=== PATIENT | male | born 1945 | race Caucasian/White ===

== ENCOUNTER 2018-04-02 10:00 | Day surgery (SDC) | payer MEDICARE, BC, SELFPAY ==
[2018-04-02 10:33] VITALS: BP 132/69; PULSE 56; RESP 18; TEMP 36; O2SAT 100
[2018-04-02] MEDS: SODIUM CHLORIDE 0.9% 1,000 ML 200 ML IV (10:39)
--- NOTE | 2018-04-02 10:45 | PM.HP.1 ---
History of Present Illness Date Patient Seen: 04/02/18 Time Patient Seen: 10:45 Chief complaint: colonoscopy [id number] Narrative: 72-year-old male with personal history of colon polyps. Last endoscopy was 2013 at which time no polyps were found. His original polyp was diagnosed in 2009. He has had no recent gastrointestinal symptoms or complaints. Denies any nausea, vomiting, unintended weight loss, abdominal pain, change in bowel habits, diarrhea, constipation, melena, hematochezia, or bright red blood per rectum. Patient History Medical History Histoplasmosis (Acute) History of fracture of clavicle (Acute) Insomnia (Acute) Medial meniscus tear (Acute) Osteoarthritis (Acute) Personal history of colonic polyps (Acute) Prostate cancer (Acute) Urinary frequency (Acute) Surgical History History of colonoscopy (Acute) History of repair of anterior cruciate ligament (Acute) Family & Social History Family History: Reviewed 04/02/18 by Anibal Underwood MD Social History: household members significant other Nonsmoker Occasional alcoholic beverage Review of Systems Review of Systems All systems reviewed & are unremarkable except as noted in HPI and below Exam Vital Signs (past 8 hours): - 04/02/18 10:33 Temperature 96.8 F L Pulse Rate 56 L Respiratory Rate 18 Blood Pressure 132/69 H Pulse Oximetry 100 Oxygen Delivery Method Room Air Narrative Exam Narrative: Thin male in no acute distress lying comfortably in the gurney. Alert oriented x3 Sclera nonicteric Regular rate rhythm Abdomen soft and nondistended. Scaphoid. Extremities no clubbing, cyanosis, or edema Objective Labs Labs: No recent laboratory radiographic studies review Patient to begin radiation therapy for prostate cancer next month Assessment & Plan Plan: Assessment/Plan Narrative: 72-year-old male with personal history of colon polyps. It has been 5 years since his last endoscopy. He requires surveillance currently. Colonoscopy is once again recommended. Technical details of the procedure were discussed. Risks, benefits, alternatives were explained. Risks including but not limited to sedation, aspiration, bleeding, pain, missed lesion, incomplete examination, need for further radiographic studies, colonic perforation, need for major abdominal surgery, and all attendant risks of major surgery were discussed in detail. All questions were answered to his satisfaction, and he voiced understanding. Consent was placed on the chart. We will proceed as above.
--- NOTE | 2018-04-02 10:49 | SUR.PREOP ---
Pt left for Endo Suite at approximately 1047. Update given to Endo RN's
--- NOTE | 2018-04-02 10:50 | P.HP_ITS ---
History of Present Illness Date Patient Seen: 04/02/18 Time Patient Seen: 10:45 Chief complaint: colonoscopy [id number] Narrative: 72-year-old male with personal history of colon polyps. Last endoscopy was 2013 at which time no polyps were found. His original polyp was diagnosed in 2009. He has had no recent gastrointestinal symptoms or complaints. Denies any nausea, vomiting, unintended weight loss, abdominal pain , change in bowel habits, diarrhea, constipation, melena, hematochezia, or bright red blood per rectum. Patient History Medical History Histoplasmosis (Acute) History of fracture of clavicle (Acute) Insomnia (Acute) Medial meniscus tear (Acute) Osteoarthritis (Acute) Personal history of colonic polyps (Acute) Prostate cancer (Acute) Urinary frequency (Acute) Surgical History History of colonoscopy (Acute) History of repair of anterior cruciate ligament (Acute) Family & Social History Family History: Reviewed 04/02/18 by Anibal Underwood MD Social History: household members significant other Nonsmoker Occasional alcoholic beverage Review of Systems Review of Systems All systems reviewed & are unremarkable except as noted in HPI and below Exam Vital Signs (past 8 hours): - 04/02/18 10:33 Temperature 96.8 F L Pulse Rate 56 L Respiratory Rate 18 Blood Pressure 132/69 H Pulse Oximetry 100 Oxygen Delivery Method Room Air Narrative Exam Narrative: Thin male in no acute distress lying comfortably in the gurney. Alert oriented x3 Sclera nonicteric Regular rate rhythm Abdomen soft and nondistended. Scaphoid. Extremities no clubbing, cyanosis, or edema Objective Labs Labs: No recent laboratory radiographic studies review Patient to begin radiation therapy for prostate cancer next month Assessment & Plan Plan: Assessment/Plan Narrative: 72-year-old male with personal history of colon polyps. It has been 5 years since his last endoscopy. He requires surveillance currently. Colonoscopy is once again recommended. Technical details of the procedure were discussed. Risks, benefits, alternatives were explained. Risks including but not limited to sedation, aspiration, bleeding, pain, missed lesion, incomplete examination, need for further radiographic studies, colonic perforation, need for major abdominal surgery, and all attendant risks of major surgery were discussed in detail. All questions were answered to his satisfaction, and he voiced understanding. Consent was placed on the chart. We will proceed as above.
--- NOTE | 2018-04-02 10:50 | PM.PREOP ---
Pre-operative Note Interval Note Pre-op Check: Yes History & Physical Reviewed by Physician, Yes Exam Performed and Yes History & Physical exam performed today by Physician Changes: No H&P completed within 30 days and has changed as indicated here:: Patient seen and examined today. History and physical examination documented and placed on the chart today. We will proceed with colonoscopy today as planned. ASA Class (for procedural sedation): II
[2018-04-02] MEDS: MIDAZOLAM 5 MG/5 ML VIAL IV (10:56)
[2018-04-02] MEDS: fentaNYL 250 MCG/5 ML INJ IV (10:56)
--- NOTE | 2018-04-02 11:21 | PM.OP.ENDO ---
Operative Date/Time/Diagnoses Date of procedure: 04/02/18 Time of procedure: 11:21 Pre-op diagnosis: Personal history of colon polyps Post-op diagnosis: other (Diverticulosis but otherwise normal colon and rectum) Procedure & Clinicians Study performed: 1. Sedation per surgeon 2. Colonoscopy Same procedure as scheduled: Yes Indications: 72-year-old male with personal history of colon polyps diagnosed approximately 2009. His last colonoscopy was 2013 which was unremarkable. He presents now for colorectal surveillance. Colonoscopy is once again recommended. Surgeon: Anibal Underwood Procedure Notes SCOAP/Timeout: Yes Procedure in detail: After obtaining informed consent, the patient was brought to the GI suite and placed in the left lateral decubitus position on the examination table. After placement of appropriate monitors, the patient was given incremental doses of Versed and Fentanyl until an appropriate level of sedation was achieved. A time out was held per SCOAP protocol. A digital rectal examination was performed and did not reveal any masses or obstructing lesions. The colonoscope was gently passed into the patient's anus and the entire colon navigated to the level of the cecum with minimal difficulty. Once in the cecum, the scope was withdrawn being sure to go before and beyond all mucosal folds and prominences and get an excellent examination. The findings are noted above. At the level of the rectal vault, the scope was retroflexed and the internal anal canal was examined. The scope was straightened and air aspirated from the colon. The instrument was removed from the patient's body and the procedure was concluded. The patient was allowed to awaken from sedation without difficulty and taken to the post-anesthesia care unit in good condition. Scope withdrawal time: 10:14 min Sedation minutes: 29 Findings: diverticulosis and other findings (Normal colon and rectum) Specimen(s): none sent Complications: none Recommendations: High fiber diet and Other recommendation (No further colonoscopy in the absence of any new symptoms or problems) Plan for aftercare: 1. Discharged home 2. He has now had 2 consecutive normal endoscopy since removal of his initial colon polyp. Therefore would not recommend further colonoscopy at his age in the absence of any new symptoms or problems. Follow up: as needed Disposition: PACU
[2018-04-02 11:30] VITALS: BP 107/63; PULSE 65; RESP 15; TEMP 36.6; O2SAT 100
[2018-04-02 11:50] VITALS: BP 125/62; PULSE 58; RESP 16; TEMP 36.1; O2SAT 100
--- NOTE | 2018-04-02 12:02 | SUR.PHASEII ---
Discharge instructions have been reviewed with both Pt and Justine and all questions have been answered. Pt is stable on feet and has met discharge criteria.
== END 2018-04-02 11:54 ==
LOC: ENDO 10:02
PROVIDERS: Family Provider Family Medicine Geriatric Medicine; PCP Family Medicine Geriatric Medicine; Visit Provider Surgery
PROC: 0DJD8ZZ Inspection of Lower Intestinal Tract, Via Natural or Artificial Opening Endoscopic (ICD-10-PCS; CPT 45378; principal; 2018-04-02 10:45)
DX: Z86.010 Personal history of colon polyps (principal); K57.30 Diverticulosis of large intestine without perforation or abscess without bleeding
CPT/HCPCS: G0105; 99152; 99153; J2250; J3010

== ENCOUNTER → 2018-05-08 09:48 | Outpatient (CLI) | payer MEDICARE, BC, SELFPAY ==
--- NOTE | 2018-05-08 | DI.MRI.S_ITS ---
PROCEDURE: MR KNEE RT WO CON INDICATIONS: TEAR OF LATERAL MENISCUS RIGHT KNEE TECHNIQUE: Noncontrast sagittal PD fast spin echo and T2 fast spin echo with fat saturation, sagittal 3-D FLASH with fat saturation; coronal T1 spin echo and PD fast spin echo with fat saturation, and axial PD fast spin echo with fat saturation through the knee. COMPARISON: [facility] Outside Film, MR, MR KNEE RIGHT WITHOUT CONTRAST, 04/05/2014, 9:15. FINDINGS: Image quality: Excellent. Menisci: Lateral meniscal tear involving the body, with extension of abnormal signal to the superior articular surface. There is internal signal change within the posterior horn of the medial meniscus which extends to the undersurface in keeping with tear which extends to the body, although this was present on prior study dated 04/05/14. Cruciate ligaments: Postsurgical changes related to ACL repair. The proximal portion of the graft is visualized to about the level of the tibial plateau however they remaining graft is not well-seen raising the possibility of at least partial rupture. Please correlate to clinical exam findings. The graft was not well-visualized on the prior remote study from 04/05/14. The posterior cruciate ligament is thickened with intrasubstance signal change suggesting mucoid degeneration versus age-indeterminate partial rupture/sprain. There is multiloculated presumed ganglion cyst adjacent to the PCL on image 19 series 5 measuring approximately 1.5 x 0.9 cm. Medial structures: The medial collateral ligament appears intact. The posterior oblique ligament, semimembranosus tendon insertions, oblique popliteal ligament, and meniscocapsular junction appear intact. Visualized portions of the pes anserinus tendons appear normal. No abnormal bursal fluid. Lateral structures: The lateral collateral ligament, long and short heads of the biceps femoris tendon appear intact. The popliteus tendon appears normal; the popliteofibular ligament appears intact. The posterosuperior and anteroinferior popliteomeniscal fascicles appear intact. The arcuate and fabellofibular ligaments appear intact, on either side of the lateral inferior geniculate artery. Iliotibial band appears normal. Anterior structures: The quadriceps and patellar tendons appear intact. Patellar alignment is normal. No femoral trochlear dysplasia or ventral trochlear prominence. No edema in the infrapatellar fat pad. Bones and cartilage: No bone marrow contusions or fractures. Within the medial compartment, no definite focal articular cartilage defect is seen. Within the lateral compartment, where partial-thickness loss and surface fraying of the femoral cartilage. There is intrasubstance signal change involving the central weightbearing tibial cartilage. No definite focal cartilage defect is seen. Within the patellofemoral compartment, diffuse surface fraying of the patellar articular cartilage. Joint space: Small joint effusion is present. No Batista's cyst identified. IMPRESSION: Postsurgical changes related to ACL repair, and poor visualization of the distal segment of the ACL graft raising possibility of at least partial rupture however recommend correlation to clinical exam findings. Of note, on the prior study dated 04/05/14, the ACL graft was similarly not well-visualized. Medial meniscal tear involving the body and posterior horn, as before. Lateral meniscal tear involving the body. This finding appears new. Thickening and internal signal change involving the posterior cruciate ligament suggestive of chronic mucoid degeneration versus age-indeterminate partial rupture/sprain. This appears new since the prior study. Multiloculated periligamentous ganglion cyst adjacent to the PCL Degenerative joint disease as above. Small joint effusion. Dictated by: Christofer Arce M.D. on 05/08/2018 at 11:07 Approved by: Christofer Arce M.D. on 05/08/2018 at 11:22
== END ==
PROVIDERS: Family Provider Family Medicine Geriatric Medicine; PCP Family Medicine Geriatric Medicine; Visit Provider Orthopaedic Surgery
DX: S83.281A Other tear of lateral meniscus, current injury, right knee, initial encounter (principal); S83.241A Other tear of medial meniscus, current injury, right knee, initial encounter; M17.11 Unilateral primary osteoarthritis, right knee; M67.461 Ganglion, right knee; M25.461 Effusion, right knee
CPT/HCPCS: 73721

== ENCOUNTER 2019-01-10 10:16 | Day surgery (SDC) | payer MEDICARE, OTHER, SELFPAY ==
[2019-01-09 09:07] VITALS: BMI 23.6
[2019-01-10] VITALS (10 sets, daily range): BP systolic 107–142; BP diastolic 65–81; PULSE 54–69; RESP 10–16; TEMP 36.2–36.7; O2SAT 94–100; BMI 23.6
--- NOTE | 2019-01-10 | DI.RAD.S_ITS ---
PROCEDURE: XR WRIST RT 2V INDICATIONS: RIGHT WRIST ORIF TECHNIQUE: 3 intraoperative fluoroscopic views of the wrist were acquired. COMPARISON: None. FINDINGS: Intraoperative fluoroscopic images of right wrist shows internal fixation of distal radial and ulnar shafts with anatomic wrist alignment. IMPRESSION: Fluoroscopy guidance was provided intraoperatively for ORIF of distal radius and ulna. Dictated by: Santiago Shankar M.D. on 01/10/2019 at 17:29 Approved by: Santiago Shankar M.D. on 01/10/2019 at 17:29
[2019-01-10] MEDS: LACTATED RINGERS 1,000 ML 42 ML IV (13:12)
--- NOTE | 2019-01-10 14:12 | PM.HP.1 ---
History of Present Illness Date Patient Seen: 01/10/19 Time Patient Seen: 14:13 Chief complaint: [id number] Narrative: 73-year-old male with a right distal radius and ulna fracture. He was walking his dog on 01/07/2019. He tripped and fell down landing on his right arm and the side of his right head. He did not lose consciousness. He did not have any prodromal shortness of breath, chest pain, or dizziness. He is right-hand dominant. He was seen at the emergency room on Monday and referred to us. He did have some stitches in his forehead. The arm currently is sore but manageable pain. Patient History Medical History Anaplastic thyroid carcinoma (Acute) Former smoker (Acute) Histoplasmosis (Acute) History of fracture of clavicle (Acute ~1994) Insomnia (Acute) Medial meniscus tear (Acute) Osteoarthritis (Acute) Personal history of colonic polyps (Acute) Prostate cancer (Acute) Urinary frequency (Acute) Surgical History Hx of arthroscopy of left knee (Acute) Hx of thyroidectomy (Acute 08/11/18) History of colonoscopy (Acute) History of repair of anterior cruciate ligament (Acute) Social History household members: spouse and significant other alcohol intake: current Family & Social History Family history unavailable: Yes Social History: household members spouse,significant other Tobacco & Substance use: Tobacco type cigarettes alcohol intake current Meds Home Medications Medication Instructions Recorded Confirmed Type dabrafenib 150 mg PO BID 01/09/19 01/10/19 History levothyroxine 112 mcg PO DAILY 01/09/19 01/10/19 History omeprazole 40 mg PO DAILY 01/09/19 01/10/19 History oxycodone-acetaminophen 1 tab PO Q4HR PRN 01/09/19 01/10/19 History tamsulosin 0.4 mg PO DAILY 01/09/19 01/10/19 History trametinib 2 mg PO DAILY 01/09/19 01/10/19 History zolpidem [Ambien] 5 mg PO 01/09/19 History Allergies Allergy/AdvReac Type Severity Reaction Status Date / Time No Known Drug Allergies Allergy Verified 01/09/19 09:41 Review of Systems Constitutional Constitutional: Denies chills, Denies fever(s) and Reports headache(s) Eyes Eyes: Denies blurry vision ENT Ears, Nose, Mouth, and Throat: Yes headache(s) Cardiovascular Cardiovascular: Denies chest pain Respiratory Respiratory: Denies chest congestion, Denies cough and Denies wheezing Gastrointestinal Gastrointestinal: Denies abdominal pain Musculoskeletal Musculoskeletal: Reports system reviewed; no additional complaints, except as documented Neurologic Neurologic: Denies confusion and Reports headache(s) Psychiatric Psychiatric: Denies confusion Endocrine Endocrine: Denies change in body appearance Hematologic/Lymphatic Hematologic/Lymphatic: Denies easy bruising Allergic/Immunologic Allergic/Immunologic: Denies wheezing Exam Vital Signs (past 8 hours): - 01/10/19 12:50 Temperature 97.1 F L Pulse Rate 54 L Respiratory Rate 16 Blood Pressure 125/78 Pulse Oximetry 100 Oxygen Delivery Method Room Air Const Orientation: alert and oriented x3 HENMT Other: Ecchymosis around the right side of his forehead, orbit, and jaw. Resp Auscultation: clear to auscultation bilaterally Cardio Rate: regular rate Rhythm: regular rhythm Extrem Other: Intact integument. Good capillary refill in fingers. Intact sensation through thumb in all 4 fingers. Easily wiggles thumb and fingers up and down. Objective Imaging X-rays of right wrist: My impression: Mildly displaced intra-articular distal radius fracture. Three-part vertical shear fracture through the distal ulna. Assessment & Plan (1) Closed fracture of right distal radius and ulna: Current visit: Yes Status: Acute Assessment & Plan narrative: I recommend ORIF of the distal radius as well as the ulna fracture for stability and function of the right arm. Risks and benefits of surgery were discussed including not limited to medical risk with heart attack, stroke, , DVT, PE, infection, bleeding, scarring, nerve injury with pain numbness weakness, nonunion, malunion, stiffness, laxity, failure to alleviate symptoms, need for further surgery. All questions were answered and appropriate consents were obtained.
--- NOTE | 2019-01-10 14:26 | PM.PREOP ---
Pre-operative Note Interval Note History & Physical reviewed/Exam performed by Physician: Yes Changes to H&P: No
[2019-01-10] MEDS: MIDAZOLAM 2 MG/2 ML VIAL IV (14:35)
[2019-01-10] MEDS: fentaNYL 100 MCG/2 ML INJ 50 MCG IV ×3 (14:35→17:20)
--- NOTE | 2019-01-10 14:36 | PM.OP.1 ---
Operative Date/Time/Diagnoses Date of procedure: 01/10/19 Time of procedure: 17:18 Pre-op diagnosis: Right intra-articular distal radius and ulna fractures Post-op diagnosis: same Procedure & Clinicians Procedure: Open reduction and internal fixation of right distal radius and distal ulna fractures. Same procedure as scheduled: Yes Indications: 73-year-old male with displaced intra-articular distal radius and ulna fractures of the right wrist. It is felt that he would benefit from operative reduction and stabilization. Risks and benefits of surgery discussed and appropriate consent obtained. Surgeon: Mick Turner Click Yes if Unassisted: Yes Anesthesia Type: General and Peripheral nerve block Operative Notes Findings: None Closure Type: primary Specimen(s): none sent Prosthetic devices, grafts, tissues, transplants, or devices: Acumed distal radius and ulna volar plates Estimated Blood Loss (mL): 50 Blood products transfused: none Tourniquet time (min): 90 Procedure in detail: The patient was brought to the operating room after having a block in preop and intubated on the table. Time-out was performed. Attention was turned towards the well-marked right wrist. Preoperative antibiotics were given. The arm was prepped and draped in the standard sterile fashion. An Esmarch was used to exsanguinate the limb and the tourniquet was inflated. A 8 cm incision was made along the FCR course curving radially distally across the wrist crease. We sharply dissected through the FCR tendon sheath and retracted the tendon and then came down to the quadratus. This was elevated off the distal radius. The fracture was exposed and cleaned up with a curette. We then reduced the fracture and confirmed under x-ray. We then took a Acumed volar plate. It was placed against the bone and x-ray was taken to confirm positioning. One screw was placed through the shaft in the variable hole. This was checked under x-ray and tightened down. We then placed distal row pegs and proximal row screws in the distal fragment. We started along the ulnar column and then finished out in the styloid. We then went back and placed the final shaft screws. We then made a separate 5 cm longitudinal incision on the lateral aspect of the ulna. We bluntly dissected down to expose the lateral side of the ulna, splitting between the FCU and ECU and isolated and retracted the dorsal sensory nerve. We elevated the soft tissue along the volar surface. We reduced the main distal ulna fragment and temporary the held it with a plate and K-wire and checked with x-ray. We then placed 1 shaft screw and then the distal screws. We were able to get 3 good screws to grab into the dorsal vertical piece. However, nothing was holding onto the small styloid piece. I then held it reduced and put a K-wire from the styloid going proximally. I overdrilled this for lag purposes and then placed a screw from the ulnar styloid down into the shaft to lock that in place. Everything was well reduced and stable. We placed the final shaft screws. The wrist was stressed and shucked under xray to make sure it was stable. Final x-rays were taken. The tourniquet was let down. He did have some profuse bleeding coming from a few veins but these were coagulated and then everything was dry. The wounds were irrigated. The superficial and skin were closed. The patient was placed in a well-padded volar splint. They were extubated and brought to recovery with no complications. Complications: none Condition: stable Disposition: PACU Plan for aftercare: Outpatient. Return to clinic in 1 and half weeks for suture removal and start occupational therapy with a removable splint.
[2019-01-10] MEDS: CEFAZOLIN 2 GM/100 ML FROZ.PIGGY IV (14:51)
--- NOTE | 2019-01-10 14:52 | SUR.PREOP ---
Pt transported via stretcher to room 5 for block. Block start time [1435] . Monitoring initiated and maintained throughout procedure. Oxygen and medications given per anesthesiologist instructions. Patient remained stable throughout procedure, no adverse reactions noted. Block end time [1443]. Pt then to OR via stretcher with Anjum, pt left in stable condition.
--- NOTE | 2019-01-10 15:21 | SUR.OPER ---
Supine on padded OR bed, head on pillow, left arm secured on padded arm boards at <90 degrees abduction,right arm drapped free on black armtable legs uncrossed, safety belt at thigh, tape over blanket over lower legs.
--- NOTE | 2019-01-10 15:25 | P.PCN_ITS ---
Procedures Date/Time Date of procedure: 01/10/19 Time of procedure: 14:29 Nerve Block Time out performed: Yes Local anesthetic used: other (15mL 0.5opivacaine, 5mL 2* idocaine) Location of anesthetic used: supraclavicular Amount of anesthesia used (mL): 20 Nerve blocks: brachial plexus (interscalene) Procedure successful: Yes Patient tolerated procedure: well Complications: none Additional comments: Brachial plexus nerve block for post operative pain management. Risks and benefits discussed, including bleeding, infection, intravascular injection, nerve damage, block failure. Standard ASA monitors, NC O2. Pt supine. Chloroprep site preparation, sterile technique. Brachial plexus identified with US guidance, traced from supraclavicular to interscalene, and back. 1mL 2% lidocaine skin wheal. 22g x 50mm Pajunk advanced with in- plane US guidance to brachial plexus. Negative aspiration. LA injected with intermittent negative aspiration. Good LA spread noted on US. No pain, no paraesthesia. Pt tolerated procedure well. Vital signs stable.
[2019-01-10] MEDS: SODIUM CHLORIDE 0.9% 1,000 ML, GENTAMICIN 80 MG IRR (15:29)
[2019-01-10] MEDS: BUPIVACAINE 0.5% W/ EPI (PF) VIAL 30 ML INJ (15:31)
[2019-01-10] MEDS: OXYCODONE/ACETAMINOPHEN 5/325 TABLET 1 TAB PO ×2 (17:30→18:00)
== END 2019-01-10 18:30 ==
PROVIDERS: Family Provider Family Medicine Geriatric Medicine; PCP Family Medicine Geriatric Medicine; Visit Provider Orthopaedic Surgery
PROC: (CPT 25608; principal; 2019-01-10 14:15)
DX: S52.571A Other intraarticular fracture of lower end of right radius, initial encounter for closed fracture (principal); S52.611A Displaced fracture of right ulna styloid process, initial encounter for closed fracture; W01.0XXA Fall on same level from slipping, tripping and stumbling without subsequent striking against object, initial encounter; Y93.K1 Activity, walking an animal; G89.18 Other acute postprocedural pain; M19.90 Unspecified osteoarthritis, unspecified site
CPT/HCPCS: 25608; 25651; 64415; 64450; 73100; 76000; 93005; 93010; J0690; J1100; J2250; J2704; J3010